=== PATIENT | female | born 1955 | race Caucasian/White ===

== ENCOUNTER 2022-07-08 06:00 | Outpatient (RCR) | payer MEDICARE, OTHER, SELFPAY | END 2022-07-10 23:59 | disposition home or self-care (01) | LOC: GPT 06:00 | PROVIDERS: Visit Provider Family Medicine | DX: M75.82 Other shoulder lesions, left shoulder (principal) | CPT/HCPCS: 97140; 97161; 97535 ==

== ENCOUNTER 2022-07-11 06:00 | Outpatient (RCR) | payer MEDICARE, OTHER, SELFPAY | END 2022-08-10 23:59 | disposition home or self-care (01) | LOC: GPT 06:00 | PROVIDERS: Visit Provider Family Medicine | DX: M77.8 Other enthesopathies, not elsewhere classified (principal) | CPT/HCPCS: 97110; 97112; 97140; 97530 ==

== ENCOUNTER 2022-08-11 06:00 | Outpatient (RCR) | payer MEDICARE, OTHER, SELFPAY | END 2022-09-09 23:59 | disposition home or self-care (01) | LOC: GPT 06:00 | PROVIDERS: Visit Provider Family Medicine | DX: M75.82 Other shoulder lesions, left shoulder (principal) | CPT/HCPCS: 97110; 97530; 97535 ==

== ENCOUNTER 2022-09-10 06:00 | Outpatient (RCR) | payer MEDICARE, OTHER, SELFPAY | END 2022-10-10 23:59 | disposition home or self-care (01) | LOC: GPT 06:00 | PROVIDERS: Visit Provider Family Medicine | DX: M77.8 Other enthesopathies, not elsewhere classified (principal) | CPT/HCPCS: 97110; 97112; 97164; 97530 ==

== ENCOUNTER 2022-10-11 06:00 | Outpatient (RCR) | payer MEDICARE, SELFPAY | END 2022-11-10 23:59 | disposition home or self-care (01) | LOC: GPT 06:00 | PROVIDERS: Visit Provider Family Medicine | DX: M77.8 Other enthesopathies, not elsewhere classified (principal) | CPT/HCPCS: 97110; 97530 ==

== ENCOUNTER 2022-11-11 06:00 | Outpatient (RCR) | payer MEDICARE, SELFPAY | END 2022-12-10 23:59 | disposition home or self-care (01) | LOC: GPT 06:00 | PROVIDERS: Visit Provider Family Medicine | DX: M75.82 Other shoulder lesions, left shoulder (principal) | CPT/HCPCS: 97110; 97112; 97140; 97164; 97530 ==

== ENCOUNTER 2022-12-11 06:00 | Outpatient (RCR) | payer MEDICARE, SELFPAY | END 2023-01-10 23:59 | disposition home or self-care (01) | LOC: GPT 06:00 | PROVIDERS: Visit Provider Family Medicine | DX: S39.012D Strain of muscle, fascia and tendon of lower back, subsequent encounter (principal); R26.81 Unsteadiness on feet; X58.XXXD Exposure to other specified factors, subsequent encounter | CPT/HCPCS: 97110; 97112; 97140; 97164 ==

== ENCOUNTER 2023-01-11 06:00 | Outpatient (RCR) | payer MEDICARE, SELFPAY | END 2023-02-09 23:59 | disposition home or self-care (01) | LOC: GPT 06:00 | PROVIDERS: Visit Provider Family Medicine | DX: M77.8 Other enthesopathies, not elsewhere classified (principal); M54.50 Low back pain, unspecified | CPT/HCPCS: 97110; 97112; 97140 ==

== ENCOUNTER 2023-02-10 06:00 | Outpatient (RCR) | payer MEDICARE, SELFPAY | END 2023-03-12 23:59 | disposition home or self-care (01) | LOC: GPT 06:00 | PROVIDERS: Visit Provider Family Medicine | DX: M77.8 Other enthesopathies, not elsewhere classified (principal); M54.50 Low back pain, unspecified | CPT/HCPCS: 97110; 97140 ==

== ENCOUNTER 2023-03-13 06:00 | Outpatient (RCR) | payer MEDICARE, SELFPAY | END 2023-04-12 14:31 | disposition home or self-care (01) | LOC: GPT 06:00 | PROVIDERS: Visit Provider Family Medicine | DX: M77.8 Other enthesopathies, not elsewhere classified (principal) | CPT/HCPCS: 97110; 97112; 97140; 97164; 97530 ==